=== PATIENT | female | born 1955 | race Caucasian/White ===

== ENCOUNTER 2016-09-21 08:13 | Outpatient (CLI) | payer OTHER ==
[2016-09-21 13:13] LABS: CALCIUM 9.1 mg/dL (8.5-10.3); CREATININE 0.8 mg/dL (0.4-1.0); POTASSIUM 4.6 mmol/L (3.5-5.0)
[2016-09-21 13:15] LABS: HEMOGLOBIN A1C 0.78 g/dL
== END 2016-09-21 08:14 | disposition home or self-care (01) ==
LOC: LAB.WCP 08:13
PROVIDERS: ATTEND Family Medicine
DX: E11.65 Type 2 diabetes mellitus with hyperglycemia (principal)
CPT/HCPCS: 36415; 80048; 82043; 83036

== ENCOUNTER 2016-11-17 07:10 | Outpatient (CLI) | payer OTHER ==
--- NOTE | 2016-11-19 07:42 | Mammography Report ---
DIGITAL BILATERAL SCREENING MAMMOGRAM: 11/17/2016 CLINICAL HISTORY: A 60-year-old female in for routine screening mammogram. Patient has no family hi story of breast cancer. Patient has had no prior breast surgeries. COMPARISON: 07/30/2008, 08/07/2009, 06/20/2014, 12/17/2014 TECHNIQUE: Craniocaudad and oblique lateral views of each breast were obtained with [facility] Fie ld digital mammography. The breasts are large and had to be imaged in segments which does limit the sensitivity of mammography. It was very difficult to obtain adequate compression on the oblique late ral views on this patient because of the protruding abdomen. Multiple oblique lateral views were obt ained of each breast in additional to routine craniocaudad views and FLAIR exaggerated views of each breast were done. FINDINGS: Breasts are almost entirely composed of fat. No significant clusters of calcification are seen. No significant masses are noted. No change is seen. IMPRESSION: BREASTS APPEAR RADIOGRAPHICALLY BENIGN. BIRADS CATEGORY 1 - NEGATIVE. RECOMMENDATIONS: Annual bilateral screening mammography. STANDARD QUALIFYING STATEMENTS 1. This examination was reviewed with the aid of Computer-Aided Detection (CAD). 2. A negative or benign imaging report should not delay biopsy if clinically suspicious findings are present. Consider surgical consultation if warranted. More than 5% of cancers are not identified by i ing. 3. Dense breasts may obscure an underlying neoplasm. JOB #: [id number] EXT JOB #:[id number]
== END 2016-11-17 07:11 | disposition home or self-care (01) ==
LOC: DI 07:10
PROVIDERS: ATTEND Family Medicine
DX: Z12.31 Encounter for screening mammogram for malignant neoplasm of breast (principal)
CPT/HCPCS: 77067

== ENCOUNTER 2017-05-23 08:00 | Outpatient (CLI) | payer OTHER ==
[2017-05-23 13:04] LABS: BASOPHILS # (AUTO) 0.1 10^3/uL (0.0-0.1); BASOPHILS % (AUTO) 0.4 %; EOSINOPHILS # (AUTO) 0.1 10^3/uL (0.0-0.7); HGB - HEMOGLOBIN 12.4 g/dL (12.0-16.0); LYMPHOCYTES # (AUTO) 2.1 10^3/uL (1.5-3.5); LYMPHOCYTES % (AUTO) 16.4 %; MEAN CORPUSCULAR HEMOGLOBIN 27.2 pg (27.0-31.0); MEAN CORPUSCULAR HGB CONC 32.6 g/dL (32.0-36.0); MEAN CORPUSCULAR VOLUME 83.4 fL (81.0-99.0); MEAN PLATELET VOLUME 8.6 fL (7.9-10.8); MONOCYTES # (AUTO) 0.7 10^3/uL (0.0-1.0); NEUTROPHILS # (AUTO) 9.6 10^3/uL (1.5-6.6); NEUTROPHILS % (AUTO) 76.2 %; PLT - PLATELET COUNT 341 10^3/uL (130-450); RED BLOOD COUNT 4.57 10^6/uL (4.20-5.40); RED CELL DISTRIBUTION WIDTH 15.2 % (12.0-15.0); WHITE BLOOD COUNT 12.6 x10^3/uL (4.8-10.8)
[2017-05-23 13:19] LABS: ALBUMIN 3.7 g/dL (3.2-5.5); ALBUMIN/GLOBULIN RATIO 0.9 (1.0-2.2); ALKALINE PHOSPHATASE 46 IU/L (42-121); ALT ALANINE AMINOTRANSFERASE 20 IU/L (10-60); AST ASPARTATE AMINOTRANSFERASE 20 IU/L (10-42); BILIRUBIN,TOTAL 0.5 mg/dL (0.2-1.0); BUN - BLOOD UREA NITROGEN 20 mg/dL (6-20); CALCIUM 8.6 mg/dL (8.5-10.3); CARBON DIOXIDE - CO2 24 mmol/L (21-32); CHLORIDE 103 mmol/L (101-111); CHOL/HDL RATIO 5.8 (<4.4); CHOLESTEROL 202 mg/dL; CREATININE 0.8 mg/dL (0.4-1.0); GFR - MDRD 73 (>89); GLUCOSE 201 mg/dL (70-100); HDL CHOLESTEROL 35 mg/dL; LDL CHOLESTEROL,CALCULATED 106 mg/dL; SODIUM 134 mmol/L (135-145); TOTAL PROTEIN 7.7 g/dL (6.7-8.2); VLDL CHOLESTEROL 61 mg/dL
[2017-05-23 13:26] LABS: HB2 TOTAL 13.6 g/dL; HEMOGLOBIN A1C 0.9 g/dL
[2017-05-23 13:27] LABS: HEMOGLOBIN A1C % 8.2 % (4.6-6.2)
== END 2017-05-23 08:01 | disposition home or self-care (01) ==
LOC: LAB.WCP 08:00
PROVIDERS: ATTEND Family Medicine
DX: E11.9 Type 2 diabetes mellitus without complications (principal)
CPT/HCPCS: 36415; 80053; 80061; 83036; 83721; 84443; 85025

== ENCOUNTER 2017-06-03 08:00 | Outpatient (CLI) | payer OTHER ==
[2017-06-05 12:51] LABS: COMPLEMENT COMPONENT C4C 27 mg/dL (16-47)
== END 2017-06-03 08:01 | disposition home or self-care (01) ==
LOC: LAB.WCP 08:00
PROVIDERS: ATTEND Allergy & Immunology
DX: T78.3XXA Angioneurotic edema, initial encounter (principal)
CPT/HCPCS: 36415; 81599; 83520; 86160; 86161

== ENCOUNTER 2018-01-27 18:32 | Outpatient (CLI) | payer OTHER ==
--- NOTE | 2018-01-29 15:44 | Ultrasound Report ---
Reason: NON-PRS CHRONIC ULCER OTH PRT L LOW LEG W FAT LAYE Procedure Date: 01/27/2018 Accession Number: [id number] / [id number] Procedure: US - Duplex Lwr Ext Arterial RT CPT Code: FULL RESULT: EXAM: RIGHT LOWER EXTREMITY ARTERIAL DOPPLER ULTRASOUND. EXAM DATE: 01/27/2018 07:29 PM. CLINICAL HISTORY: Chronic left right leg ulcer. History of type 2 diabetes. COMPARISON: None. TECHNIQUE: Real-time sonographic vascular imaging was performed by the bingo usher, utilizing color-flow, Doppler flow, and spectral analysis. Multiple union representative static images were saved for review. FINDINGS: Right Lower Extremity: MACHINE BOSS: PSV 117.7 cm/sec. Triphasic waveform. PSFA: PSV 156.9 cm/sec. Triphasic waveform. MSFA: PSV 165.4 cm/sec. Triphasic waveform. DSFA: PSV 168.8 cm/sec. Triphasic waveform. PFA: Not seen. POP: PSV 107.4 cm/sec. Monophasic waveform. KALEY: PSV 89.4 cm/sec. Monophasic waveform. MARINE GEAR KEEPER: PSV 209.7 cm/sec. Monophasic waveform. ABEL: Not seen. DPA: PSV 63.3 cm/sec. Monophasic waveform. Other: Per bingo usher notes, limited exam due to patient body habitus. IMPRESSION: 1. Elevated velocity and monophasic waveform in the posterior tibial artery indicating 50-99% stenosis. 2. At least two-vessel flow to the ankle, through the anterior tibial and posterior tibial arteries. The peroneal artery is not seen. RADIA
== END 2018-01-27 18:33 | disposition home or self-care (01) ==
LOC: DI 18:32
PROVIDERS: ATTEND Internal Medicine
DX: E11.51 Type 2 diabetes mellitus with diabetic peripheral angiopathy without gangrene (principal)

== ENCOUNTER 2018-02-24 14:53 | Outpatient (CLI) | payer OTHER | END 2018-02-24 14:54 | disposition home or self-care (01) | LOC: LAB.WCP 14:53 | PROVIDERS: ATTEND Internal Medicine | DX: I87.311 Chronic venous hypertension (idiopathic) with ulcer of right lower extremity (principal); L97.822 Non-pressure chronic ulcer of other part of left lower leg with fat layer exposed; L08.9 Local infection of the skin and subcutaneous tissue, unspecified | CPT/HCPCS: 36415; 84134 ==

== ENCOUNTER 2018-05-10 08:10 | Outpatient (CLI) | payer BC, OTHER ==
[2018-05-10 12:41] LABS: ALBUMIN 3.6 g/dL (3.2-5.5); BILIRUBIN,TOTAL 0.3 mg/dL (0.2-1.0); CALCIUM 8.8 mg/dL (8.5-10.3); CREATININE 0.7 mg/dL (0.4-1.0); TOTAL PROTEIN 7.3 g/dL (6.7-8.2)
[2018-05-10 12:46] LABS: HB2 TOTAL 12.8 g/dL; HEMOGLOBIN A1C 0.8 g/dL; HEMOGLOBIN A1C % 7.9 % (4.6-6.2)
== END 2018-05-10 23:59 | disposition home or self-care (01) ==
LOC: LAB.WCP 08:10
PROVIDERS: ATTEND Family Medicine
DX: E11.9 Type 2 diabetes mellitus without complications (principal)
CPT/HCPCS: 36415; 80053; 83036

== ENCOUNTER 2019-11-23 09:15 | Outpatient (CLI) | payer BC ==
[2019-11-23 11:34] LABS: BASOPHILS # (AUTO) 0.1 10^3/uL (0.0-0.1); BASOPHILS % (AUTO) 0.5 %; EOSINOPHILS # (AUTO) 0.2 10^3/uL (0.0-0.7); EOSINOPHILS % (AUTO) 1.7 %; HGB - HEMOGLOBIN 12.1 g/dL (12.0-16.0); LYMPHOCYTES % (AUTO) 19.4 %; MEAN CORPUSCULAR HEMOGLOBIN 27.4 pg (27.0-31.0); MEAN CORPUSCULAR HGB CONC 32.2 g/dL (32.0-36.0); MEAN CORPUSCULAR VOLUME 85.1 fL (81.0-99.0); MEAN PLATELET VOLUME 9.9 fL (7.9-10.8); MONOCYTES # (AUTO) 0.6 10^3/uL (0.0-1.0); MONOCYTES % (AUTO) 5.7 %; NEUTROPHILS # (AUTO) 7.4 10^3/uL (1.5-6.6); NEUTROPHILS % (AUTO) 72.3 %; PLT - PLATELET COUNT 402 10^3/uL (130-450); RED BLOOD COUNT 4.42 10^6/uL (4.20-5.40); RED CELL DISTRIBUTION WIDTH 15.9 % (12.0-15.0); WHITE BLOOD COUNT 10.2 x10^3/uL (4.8-10.8)
[2019-11-23 12:07] LABS: ALBUMIN 3.7 g/dL (3.2-5.5); ALBUMIN/GLOBULIN RATIO 0.9 (1.0-2.2); ALKALINE PHOSPHATASE 46 IU/L (42-121); ALT ALANINE AMINOTRANSFERASE 23 IU/L (10-60); AST ASPARTATE AMINOTRANSFERASE 21 IU/L (10-42); BILIRUBIN,TOTAL 0.6 mg/dL (0.2-1.0); BUN - BLOOD UREA NITROGEN 19 mg/dL (6-20); CARBON DIOXIDE - CO2 28 mmol/L (21-32); CHLORIDE 99 mmol/L (101-111); CHOL/HDL RATIO 3.3 (<4.4); CHOLESTEROL 180 mg/dL; GLUCOSE 145 mg/dL (70-100); HDL CHOLESTEROL 54 mg/dL; LDL CHOLESTEROL,CALCULATED 58 mg/dL; LDL/HDL RATIO 1.1 (<4.4); SODIUM 138 mmol/L (135-145); VLDL CHOLESTEROL 68 mg/dL
[2019-11-23 12:26] LABS: HB2 TOTAL 12.4 g/dL; HEMOGLOBIN A1C 0.69 g/dL; HEMOGLOBIN A1C % 7.2 % (4.6-6.2)
== END 2019-11-23 23:59 | disposition home or self-care (01) ==
LOC: LAB.WCP 09:15
PROVIDERS: ATTEND Family Medicine
DX: R10.31 Right lower quadrant pain (principal); E11.9 Type 2 diabetes mellitus without complications
CPT/HCPCS: 36415; 80053; 80061; 81599; 83036; 83721; 84443; 85025

== ENCOUNTER 2020-02-29 09:12 | Outpatient (CLI) | payer BC ==
[2020-02-29 11:52] LABS: CALCIUM 8.7 mg/dL (8.5-10.3)
== END 2020-02-29 23:59 | disposition home or self-care (01) ==
LOC: LAB.WCP 09:12
PROVIDERS: ATTEND Family Medicine
DX: E11.9 Type 2 diabetes mellitus without complications (principal)
CPT/HCPCS: 36415; 80048; 82043; 82570; 83036

== ENCOUNTER 2020-06-02 08:00 | Outpatient (CLI) | payer BC ==
[2020-06-02 12:33] LABS: % IRON SATURATION 6 % (20-50); CHOL/HDL RATIO 4.1 (<4.4); CHOLESTEROL 156 mg/dL; HDL CHOLESTEROL 38 mg/dL; IRON 24 ug/dL (28-170); LDL CHOLESTEROL,CALCULATED 62 mg/dL; LDL/HDL RATIO 1.6 (<4.4); TOTAL IRON BINDING CAPACITY 391 ug/dL (250-450); TRANSFERRIN 279 mg/dL (192-382); VLDL CHOLESTEROL 56 mg/dL
[2020-06-02 12:36] LABS: INR 2.2 (0.8-1.2); PT - PROTHROMBIN TIME 23.4 secs (9.9-12.6)
[2020-06-02 12:52] LABS: FERRITIN 21.2 ng/mL (11.0-306.8)
== END 2020-06-02 23:59 | disposition home or self-care (01) ==
LOC: LAB.WCP 08:00
PROVIDERS: ATTEND Nurse Practitioner Family
DX: E88.81 Metabolic syndrome and other insulin resistance (principal); E11.9 Type 2 diabetes mellitus without complications; Z79.4 Long term (current) use of insulin
CPT/HCPCS: 36415; 80061; 82306; 82607; 82728; 82747; 83013; 83540; 83721; 83970; 84443; 84466; 85610; 85730

== ENCOUNTER 2020-07-17 16:13 | Outpatient (CLI) | payer BC ==
[2020-07-17 16:56] VITALS: BP 126/71
--- NOTE | 2020-07-17 16:56 | SLEEP CARE CONSULTATION ---
Information from patient questionnaire entered by Kevyn Viera. I have reviewed and concur with the information entered by Kevyn Viera. This document represents the service I personally performed and the decisions made by me, Kristin Vaughan ARNP. History of Present Illness Service Date and Time: 07/17/2020 1613 Reason for Visit: New patient, Re-establish care, Other (Having bariatric surgery) Chief Complaint: reports: Snoring Usual bedtime: 11 PM Time it takes to fall asleep: 30 min - 1 hr Snores at night: Yes (she may, she sleeps alone) Observed to quit breathing while asleep: No (she sleeps alone) Sleeps alone due to snoring: No Number of times waking at night: 1-2 Reasons for waking at night: reports: Bathroom Toss, Turn, or Twitch while sleeping: Yes (some) Recalls having dreams: Yes Usually gets out of bed at: 6-6:15 Feels refreshed in the morning: Yes (Most of the time) Morning headache: No Sleepy or fatigued during the day: Yes (sometimes) Ever fallen asleep while driving: No Takes day naps: Yes (On weekends) Dreams during day naps: Yes Prior sleep studies: No Additional HPI information: I had the pleasure of seeing FEDE QUIROZ today regarding the possibility of her having a sleep disorder. Her current complaint is occasional snoring. She is working on getting bariatric surgery and needs to have a sleep study prior to the surgery. She states she does not have pauses in breathing when sleeping but sleeps alone. She states the majority of the time she wakes up feeling rested. She has good energy during the day and denies daytime sleepiness. She only naps on the weekends. 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 She has a history of diabetes, asthma and Factor V. She states her father snored but no family history of sleep apnea. 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 Patient is and lives in [place]. Have you smoked in the past 12 months: No Alcohol use: Yes Alcohol amount and frequency: occasionally Caffeine use: Yes Caffeine amount and frequency: 1 cup per day - iced tea Family History Family history of sleep disordered breathing: No Family Hx Sleep Apnea: Father: Snoring Allergies and Home Medications Drug allergies reviewed: Yes (lisinopril, losartin) Home medication list reviewed: Yes Allergy and home medication list: Lovastatin Furosemide Metformin HCTZ Advair Hydralazine Montelukast Warfarin Gabapentin Allertec Novolin R Novolin N Extra Strength Tylenol B12 D3 Iron Review of Systems Cardiovascular: reports: have to sleep sitting up (because of weight). denies: high blood pressure Respiratory: reports: shortness of breath, wheeze, chronic cough Gastrointestinal: reports: other (IBS). denies: heartburn Neurological: denies: headaches Psychiatric: denies: anxiety, depression Ear/Nose/Throat: reports: dry mouth/throat, wisdom teeth removed. denies: tonsillectomy Musculoskeletal: reports: joint pain (stiffness) Immunologic: reports: sneezing (runny nose), itching, allergies to food or environment Physical Exam Blood Pressure: 126/71 Cuff size: wrist Heart Rate: 93 O2 Saturation: 97 Height: 5 ft 4 in Weight: 340 lb Body Mass Index: 58.3 BMI Classification: Morbidly Obese Nostrils: patent to airflow Mouth and throat: narrow oropharynx Soft palate: long Hard palate: normal Uvula: normal Uvula visualization: 50% Mallampati Class II Tongue: enlarged in size with teeth kumar on lateral edges Tonsils: 2+ Heart: regular rate and rhythm Lungs: clear bilaterally Impression and Plan 1. Suspected Obstructive Sleep Apnea-Hypopnea Syndrome, as suggested by a history of occasional snoring, diabetes and patient being evaluated for bariatric surgery. Narrow oropharynx and obesity are common predisposing factors for obstructive sleep apnea-hypopnea syndrome. I recommend proceeding to polysomnography to confirm the diagnosis and to assess severity. If the patient has significant sleep disordered breathing, a manual CPAP titration study will also be performed to find the optimal treatment pressure. I informed the patient of what the sleep studies involve and after some discussion, obtained agreement to proceed. The pathophysiology of obstructive sleep apnea-hypopnea syndrome was discussed with the patient and health risks of cardiovascular and cerebrovascular disease if not treated. Risks of drowsy driving discussed in detail and patient advised to avoid long distance driving and to crop puller at the first sign of drowsiness. Patient agreed to plan. * Schedule polysomnography +- manual CPAP titration study and return in 1-2 weeks after the study to discuss result and initiate therapy. * Avoid long distance driving or driving when feeling sleepy. * Avoid alcohol, sedative and muscle relaxant around bedtime. * Continue to try to lose weight. * Review instructions provided by trained office staff on how to prepare for the sleep study. * Return for follow-up after sleep study completed. Counseling Topics: Weight loss health impact Visit Type: In Office Time Spent with Patient (minutes): 31 Provider Statement: I spent 100% of the Face to Face Visit with the patient with greater than 50% spent counseling the patient and coordination of care.
== END 2020-07-17 16:14 | disposition home or self-care (01) ==
LOC: SC 16:13
PROVIDERS: ATTEND Nurse Practitioner Family
DX: R06.83 Snoring (principal); E11.9 Type 2 diabetes mellitus without complications; E66.01 Morbid (severe) obesity due to excess calories; Z68.43 Body mass index [BMI] 50.0-59.9, adult; Z79.84 Long term (current) use of oral hypoglycemic drugs
CPT/HCPCS: 99203; 99212

== ENCOUNTER 2020-07-28 08:00 | Outpatient (CLI) | payer BC ==
[2020-07-28 12:24] LABS: BASOPHILS % (AUTO) 0.4 %; EOSINOPHILS # (AUTO) 0.2 10^3/uL (0.0-0.7); EOSINOPHILS % (AUTO) 1.8 %; HCT - HEMATOCRIT 40.1 % (37.0-47.0); HGB - HEMOGLOBIN 12.3 g/dL (12.0-16.0); LYMPHOCYTES # (AUTO) 2.5 10^3/uL (1.5-3.5); LYMPHOCYTES % (AUTO) 22.8 %; MEAN CORPUSCULAR HEMOGLOBIN 26.1 pg (27.0-31.0); MEAN CORPUSCULAR HGB CONC 30.7 g/dL (32.0-36.0); MEAN PLATELET VOLUME 10.1 fL (7.9-10.8); MONOCYTES # (AUTO) 0.6 10^3/uL (0.0-1.0); MONOCYTES % (AUTO) 5.3 %; NEUTROPHILS # (AUTO) 7.5 10^3/uL (1.5-6.6); NEUTROPHILS % (AUTO) 69.3 %; PLT - PLATELET COUNT 428 10^3/uL (130-450); RED BLOOD COUNT 4.72 10^6/uL (4.20-5.40); RED CELL DISTRIBUTION WIDTH 16.1 % (12.0-15.0); WHITE BLOOD COUNT 10.8 x10^3/uL (4.8-10.8)
[2020-07-28 12:34] LABS: ALBUMIN 4.2 g/dL (3.2-5.5); BILIRUBIN,TOTAL 0.6 mg/dL (0.2-1.0); CALCIUM 9.5 mg/dL (8.5-10.3); POTASSIUM 3.9 mmol/L (3.5-5.0); TOTAL PROTEIN 8.4 g/dL (6.7-8.2)
[2020-07-28 12:55] LABS: ESTIMATED AVERAGE GLUCOSE 157 mg/dL (70-100); HEMOGLOBIN A1c% 7.1 % (4.27-6.07)
== END 2020-07-28 23:59 | disposition home or self-care (01) ==
LOC: LAB.WCP 08:00
PROVIDERS: ATTEND Family Medicine
DX: E11.9 Type 2 diabetes mellitus without complications (principal)
CPT/HCPCS: 36415; 80053; 83013; 83036; 85025

== ENCOUNTER 2020-09-19 14:50 | Outpatient (CLI) | payer BC | END 2020-09-19 14:51 | disposition home or self-care (01) | LOC: SC 14:50 | PROVIDERS: ATTEND Nurse Practitioner Family | DX: R06.83 Snoring (principal); E11.9 Type 2 diabetes mellitus without complications; E66.01 Morbid (severe) obesity due to excess calories; Z68.43 Body mass index [BMI] 50.0-59.9, adult | CPT/HCPCS: 95806 ==

== ENCOUNTER 2020-10-03 16:07 | Outpatient (CLI) | payer BC ==
--- NOTE | 2020-10-03 16:36 | SLEEP CARE CONSULTATION ---
Information from patient questionnaire entered by Kevyn Viera. I have reviewed and concur with the information entered by Kevyn Viera. This document represents the service I personally performed and the decisions made by , Kristin Vaughan ARNP. History of Present Illness Service Date and Time: 10/03/2020 1607 Initial Haiku Sleepiness Scale score: 10 (in 2020) Current Haiku Sleepiness Scale score: 6 Additional HPI information: FEDE QUIROZ returns for follow up and results of the recently performed home sleep study. The patient was informed of the following findings: no significant sleep disordered breathing with an average AHI of 2.9 and rupali oxygen saturation of 87%. I explained the pathophysiology behind obstructive sleep apnea. Patient does not have sleep apnea and was advised how weight gain could increase the risk of developing sleep apnea in the future. I strongly encouraged the patient to lose weight. Patient has light snoring. Snoring can be reduced by weight loss. Weight loss is best achieved with diet consult. Patient instructed to contact PCP for referral. Snoring can also be treated with an oral appliance from a dentist. Advised to check insurance coverage. In addition, an ENT evaluation can be do to see if other treatment is indicated. Patient counseled not drink alcohol less than 4 hours before bedtime as it can increase snoring and apnea. Patient was cautioned about risks of drowsy driving until sleepiness symptoms resolve. Sleep Study - Results Type of Sleep Study: Home sleep study Prior sleep studies: No Polysomnography/Home Sleep Study results: Physician Impression: The quality of the study is good. The length of the study is adequate (> 240 minutes). Please also see the tabulated and graphic data. 1. No significant sleep-disordered breathing, with an AHI of 2.9/hr and rupali SaO2 of 87%. During the study, the patient had 9 apneas (9 obstructive, 0 central, 0 mixed) and 13 hypopneas. The longest episode lasted 69.0 seconds. The patient slept only in supine position (supine AHI was 2.9 and nonsupine, 0.00). 2. Hypoxemia (ICD-10 R09.02), minimal, with the lowest oxygen saturation of 87 % and 0.9 minutes with SaO2 under 90%. Baseline oxygen saturation was normal (Average oxygen saturation was 94%). Allergies and Home Medications Home medication list reviewed: Yes (no changes) Review of Systems Review of systems same as previous: Yes (no changes) Physical Exam Heart Rate: 82 O2 Saturation: 97 Height: 5 ft 4 in Weight: 333 lb Weight change since last visit: 7 lb loss Body Mass Index: 57.1 BMI Classification: Morbidly Obese Impression and Plan Snoring but no significant sleep disordered breathing. Patient advised that often weight loss will reduce snoring as well as apnea risk. She is already set up to have bariatric surgery. An oral appliance can also be used for snoring. This would require a dental consultation. Patient cautioned not to use other online appliances as can cause bite issues. A list of accredited dentists in [facility] who make oral appliances are available in the office. Patient is advised to check if insurance will cover. An ENT consult can also be helpful to determine if any other treatment is an option. * Attempt to lose weight * Avoid alcohol consumption near bedtime * The patient is cautioned about driving until sleepiness is completely resolved. * Return as needed for follow up. Counseling Topics: Weight loss health impact Visit Type: In Office Time Spent with Patient (minutes): 11 Provider Statement: I spent 100% of the Face to Face Visit with the patient with greater than 50% spent counseling the patient and coordination of care.
== END 2020-10-03 16:08 | disposition home or self-care (01) ==
LOC: SC 16:07
PROVIDERS: ATTEND Nurse Practitioner Family
DX: R06.83 Snoring (principal); E66.01 Morbid (severe) obesity due to excess calories; Z68.43 Body mass index [BMI] 50.0-59.9, adult; E11.9 Type 2 diabetes mellitus without complications; Z79.84 Long term (current) use of oral hypoglycemic drugs
CPT/HCPCS: 99212

== ENCOUNTER 2020-12-19 13:45 | Outpatient (CLI) | payer BC ==
[2020-12-19 18:25] LABS: CALCIUM 9.2 mg/dL (8.5-10.3); CREATININE 0.9 mg/dL (0.4-1.0); POTASSIUM 3.9 mmol/L (3.5-5.0)
[2020-12-19 21:43] LABS: ESTIMATED AVERAGE GLUCOSE 163 mg/dL (70-100); HEMOGLOBIN A1c% 7.3 % (4.27-6.07)
== END 2020-12-19 23:59 | disposition home or self-care (01) ==
LOC: LAB.WCP 13:45
PROVIDERS: ATTEND Family Medicine
DX: E11.9 Type 2 diabetes mellitus without complications (principal)
CPT/HCPCS: 36415; 80048; 83036

== ENCOUNTER 2020-12-25 08:00 | Outpatient (CLI) | payer BC ==
[2020-12-25 11:44] LABS: BASOPHILS # (AUTO) 0.1 10^3/uL (0.0-0.1); BASOPHILS % (AUTO) 0.6 %; EOSINOPHILS # (AUTO) 0.3 10^3/uL (0.0-0.7); EOSINOPHILS % (AUTO) 3.5 %; HCT - HEMATOCRIT 38.6 % (37.0-47.0); LYMPHOCYTES # (AUTO) 2.4 10^3/uL (1.5-3.5); MEAN CORPUSCULAR HEMOGLOBIN 25.8 pg (27.0-31.0); MEAN CORPUSCULAR HGB CONC 31.1 g/dL (32.0-36.0); MONOCYTES # (AUTO) 0.5 10^3/uL (0.0-1.0); MONOCYTES % (AUTO) 5.8 %; NEUTROPHILS # (AUTO) 5.5 10^3/uL (1.5-6.6); NEUTROPHILS % (AUTO) 62.9 %; PLT - PLATELET COUNT 378 10^3/uL (130-450); RED BLOOD COUNT 4.65 10^6/uL (4.20-5.40); RED CELL DISTRIBUTION WIDTH 16.4 % (12.0-15.0); WHITE BLOOD COUNT 8.8 x10^3/uL (4.8-10.8)
== END 2020-12-25 23:59 | disposition home or self-care (01) ==
LOC: LAB.WCP 08:00
PROVIDERS: ATTEND Family Medicine
DX: D64.9 Anemia, unspecified (principal)
CPT/HCPCS: 36415; 85025

== ENCOUNTER 2021-03-03 08:00 | Outpatient (CLI) | payer BC ==
[2021-03-03 12:01] LABS: BASOPHILS # (AUTO) 0.1 10^3/uL (0.0-0.1); BASOPHILS % (AUTO) 0.4 %; EOSINOPHILS # (AUTO) 0.2 10^3/uL (0.0-0.7); HCT - HEMATOCRIT 39.5 % (37.0-47.0); HGB - HEMOGLOBIN 11.8 g/dL (12.0-16.0); LYMPHOCYTES # (AUTO) 2.4 10^3/uL (1.5-3.5); LYMPHOCYTES % (AUTO) 21.8 %; MEAN CORPUSCULAR HEMOGLOBIN 25.9 pg (27.0-31.0); MEAN CORPUSCULAR HGB CONC 29.9 g/dL (32.0-36.0); MEAN CORPUSCULAR VOLUME 86.8 fL (81.0-99.0); MEAN PLATELET VOLUME 10.4 fL (7.9-10.8); MONOCYTES # (AUTO) 0.6 10^3/uL (0.0-1.0); MONOCYTES % (AUTO) 5.6 %; NEUTROPHILS # (AUTO) 7.8 10^3/uL (1.5-6.6); NEUTROPHILS % (AUTO) 69.9 %; PLT - PLATELET COUNT 407 10^3/uL (130-450); RED BLOOD COUNT 4.55 10^6/uL (4.20-5.40); RED CELL DISTRIBUTION WIDTH 17.7 % (12.0-15.0); WHITE BLOOD COUNT 11.1 x10^3/uL (4.8-10.8)
[2021-03-03 12:26] LABS: THYROID STIMULATING HORMONE 2.13 uIU/mL (0.34-5.60)
[2021-03-03 12:32] LABS: ALBUMIN 3.8 g/dL (3.2-5.5); ALBUMIN/GLOBULIN RATIO 1.1 (1.0-2.2); ALKALINE PHOSPHATASE 44 IU/L (42-121); ALT ALANINE AMINOTRANSFERASE 17 IU/L (10-60); AST ASPARTATE AMINOTRANSFERASE 19 IU/L (10-42); BILIRUBIN,TOTAL 0.7 mg/dL (0.2-1.0); BUN - BLOOD UREA NITROGEN 13 mg/dL (6-20); CALCIUM 9.2 mg/dL (8.5-10.3); CARBON DIOXIDE - CO2 28 mmol/L (21-32); CHLORIDE 103 mmol/L (101-111); CHOL/HDL RATIO 3.6 (<4.4); CHOLESTEROL 133 mg/dL; CREATININE 0.8 mg/dL (0.4-1.0); GFR - MDRD 72 (>89); GLUCOSE 147 mg/dL (70-100); HDL CHOLESTEROL 37 mg/dL; LDL CHOLESTEROL,CALCULATED 66 mg/dL; LDL/HDL RATIO 1.8 (<4.4); POTASSIUM 4.3 mmol/L (3.5-5.0); SODIUM 141 mmol/L (135-145); TOTAL PROTEIN 7.4 g/dL (6.7-8.2); TRIGLYCERIDES 149 mg/dL; VLDL CHOLESTEROL 30 mg/dL
[2021-03-03 13:38] LABS: ESTIMATED AVERAGE GLUCOSE 143 mg/dL (70-100); HEMOGLOBIN A1c% 6.6 % (4.27-6.07)
== END 2021-03-03 23:59 | disposition home or self-care (01) ==
LOC: LAB.WCP 08:00
PROVIDERS: ATTEND Family Medicine
DX: E11.9 Type 2 diabetes mellitus without complications (principal)
CPT/HCPCS: 36415; 80053; 80061; 82607; 83036; 83721; 84443; 85025

== ENCOUNTER 2022-02-04 12:11 | Outpatient (CLI) | payer BC ==
[2022-02-04 17:38] LABS: BASOPHILS # (AUTO) 0.1 10^3/uL (0.0-0.1); BASOPHILS % (AUTO) 0.6 %; EOSINOPHILS # (AUTO) 0.3 10^3/uL (0.0-0.7); EOSINOPHILS % (AUTO) 3.7 %; HCT - HEMATOCRIT 40.3 % (37.0-47.0); HGB - HEMOGLOBIN 12.9 g/dL (12.0-16.0); LYMPHOCYTES % (AUTO) 34.3 %; MEAN CORPUSCULAR VOLUME 87.6 fL (81.0-99.0); MEAN PLATELET VOLUME 10.6 fL (7.9-10.8); MONOCYTES # (AUTO) 0.5 10^3/uL (0.0-1.0); MONOCYTES % (AUTO) 5.5 %; NEUTROPHILS # (AUTO) 4.8 10^3/uL (1.5-6.6); NEUTROPHILS % (AUTO) 55.6 %; PLT - PLATELET COUNT 380 10^3/uL (130-450); RED CELL DISTRIBUTION WIDTH 13.4 % (12.0-15.0); WHITE BLOOD COUNT 8.7 x10^3/uL (4.8-10.8)
[2022-02-04 18:03] LABS: ALBUMIN 3.6 g/dL (3.2-5.5); ALBUMIN/GLOBULIN RATIO 0.9 (1.0-2.2); ALKALINE PHOSPHATASE 54 IU/L (42-121); ALT ALANINE AMINOTRANSFERASE 22 IU/L (10-60); AST ASPARTATE AMINOTRANSFERASE 20 IU/L (10-42); BILIRUBIN,TOTAL 0.6 mg/dL (0.2-1.0); BUN - BLOOD UREA NITROGEN 11 mg/dL (6-20); CALCIUM 9.5 mg/dL (8.5-10.3); CARBON DIOXIDE - CO2 29 mmol/L (21-32); CHLORIDE 99 mmol/L (101-111); CHOL/HDL RATIO 5.1 (<4.4); CHOLESTEROL 197 mg/dL; CREATININE 0.7 mg/dL (0.4-1.0); GFR - MDRD 84 (>89); GLUCOSE 208 mg/dL (70-100); HDL CHOLESTEROL 39 mg/dL; POTASSIUM 4.2 mmol/L (3.5-5.0); SODIUM 136 mmol/L (135-145); TOTAL PROTEIN 7.4 g/dL (6.7-8.2); TRIGLYCERIDES 489 mg/dL
[2022-02-04 18:09] LABS: % IRON SATURATION 14 % (20-50); IRON 52 ug/dL (28-170); TOTAL IRON BINDING CAPACITY 374 ug/dL (250-450); TRANSFERRIN 267 mg/dL (192-382)
[2022-02-04 18:10] LABS: THYROID STIMULATING HORMONE 1.23 uIU/mL (0.34-5.60)
[2022-02-04 18:14] LABS: FERRITIN 16.7 ng/mL (11.0-306.8)
[2022-02-04 18:25] LABS: LDL CHOLESTEROL,DIRECT 84 mg/dL; LDLD/HDL RATIO 2.2 (<4.4)
[2022-02-04 20:19] LABS: ESTIMATED AVERAGE GLUCOSE 209 mg/dL (70-100); HEMOGLOBIN A1c% 8.9 % (4.27-6.07)
[2022-02-05 20:07] LABS: FOLATE HEMOLYSATE 364.7 ng/mL (Not Estab.); FOLATE RBC 950 ng/mL (>498); HEMATOCRIT 38.4 % (34.0-46.6)
== END 2022-02-04 12:12 | disposition home or self-care (01) ==
LOC: LAB.N 12:11
PROVIDERS: ATTEND Family Medicine
DX: E11.9 Type 2 diabetes mellitus without complications (principal); K91.2 Postsurgical malabsorption, not elsewhere classified; Z98.84 Bariatric surgery status
CPT/HCPCS: 36415; 80053; 80061; 82390; 82525; 82607; 82728; 82747; 83036; 83540; 83721; 84443; 84466; 85014; 85025

== ENCOUNTER 2022-08-09 08:52 | Outpatient (CLI) | payer BC ==
[2022-08-09 13:06] LABS: ESTIMATED AVERAGE GLUCOSE 180 mg/dL (70-100); HEMOGLOBIN A1c% 7.9 % (4.27-6.07)
== END 2022-08-09 08:53 | disposition home or self-care (01) ==
LOC: LAB.N 08:52
PROVIDERS: ATTEND Nurse Practitioner
DX: E11.9 Type 2 diabetes mellitus without complications (principal)
CPT/HCPCS: 36415; 83036

== ENCOUNTER 2023-04-18 09:15 | Outpatient (CLI) | payer BC ==
--- NOTE | 2023-04-18 13:55 | CT Report ---
PROCEDURE: ABDOMEN/PELVIS WO INDICATIONS: BARIATRIC SURGERY STATUS TECHNIQUE: After intravenous administration of oral contrast, A CT scan of the abdomen and pelvis was performed without the use of intravenous contrast. Images were recorded and evaluated at appropriate window se ttings. Reformats: coronal and sagittal. For radiation dose reduction, the following was used: automa mandeep exposure control, adjustment of mA and/or kV according to patient size. COMPARISON: None. FINDINGS: Image quality: Excellent. Lung bases and heart: Unremarkable. Liver: Normal size. Mild hepatic steatosis. No solid mass. Gallbladder and biliary tree: No radiopaque gallstones. No gallbladder wall thickening or pericholecy stic fluid. Multiple stones are seen in right kidney measuring 1-8 mm. Spleen: No splenomegaly. Pancreas: No pancreatic ductal dilation. Adrenals: No adrenal nodule. Kidneys and ureters: Bilateral nonobstructive renal calculi. There is a 9 mm stone in the inferior po le of left kidney measuring [address] density. Several 1-3 stones are seen in left k idney. No hydronephrosis. No renal cystic lesion which requires follow up. No solid mass. Bowel and peritoneum: No bowel distension. No pathologic free fluid. Postsurgical changes in stomach for gastric bypass. There is a large amount of stool in colon. Lymph nodes: No central or retroperitoneal adenopathy. Vessels: No infrarenal aortic aneurysm. PELVIS Reproductive organs: Unremarkable. Bladder: No wall thickness, accounting for underdistention. Pelvic lymph nodes: No pelvic adenopathy by size criteria. Bones: No aggressive osseous abnormality. Degenerative changes in lumbar spine. 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 Other: There is a small fat-containing ventral hernia in the lower anterior abdominal wall. No inguin al hernia. A few subcutaneous densities in the anterior abdominal wall are noted, compatible with fat necrosis or injection granulomas. IMPRESSION: 1. There are bilateral nonobstructive renal calculi. No hydronephrosis. 2. Gastric bypass. 3. Mild hepatic steatosis. 4. A small fat-containing ventral hernia in the right lower anterior abdominal wall. 5. A large amount of stool in colon. Reviewed by: Rylan Petres MD on 04/18/2023 1:54 PM PST Approved by: Rylan Peters MD on 04/18/2023 1:54 PM PST Station ID: [id number]
== END 2023-04-18 09:16 | disposition home or self-care (01) ==
LOC: DI 09:15
PROVIDERS: ATTEND Nurse Practitioner
DX: R26.81 Unsteadiness on feet (principal); L30.4 Erythema intertrigo; Z98.84 Bariatric surgery status; Z79.4 Long term (current) use of insulin; N20.0 Calculus of kidney; K76.0 Fatty (change of) liver, not elsewhere classified; K43.9 Ventral hernia without obstruction or gangrene

== ENCOUNTER 2023-05-31 07:16 | Outpatient (CLI) | payer BC ==
[2023-05-31 13:13] LABS: ALBUMIN 3.8 g/dL (3.2-5.5)
== END 2023-05-31 07:17 | disposition home or self-care (01) ==
LOC: LAB.N 07:16
PROVIDERS: ATTEND Specialist
DX: L98.7 Excessive and redundant skin and subcutaneous tissue (principal)
CPT/HCPCS: 36415; 82040; 84134

== ENCOUNTER 2023-11-08 08:00 | Outpatient (CLI) | payer BC ==
[2023-11-08 12:33] LABS: BASOPHILS % (AUTO) 0.2 %; HGB - HEMOGLOBIN 13.4 g/dL (12.0-16.0); LYMPHOCYTES # (AUTO) 0.9 10^3/uL (1.5-3.5); LYMPHOCYTES % (AUTO) 6.3 %; MEAN CORPUSCULAR HEMOGLOBIN 27.6 pg (27.0-31.0); MEAN CORPUSCULAR HGB CONC 31.9 g/dL (32.0-36.0); MEAN CORPUSCULAR VOLUME 86.6 fL (81.0-99.0); MEAN PLATELET VOLUME 10.6 fL (7.9-10.8); MONOCYTES # (AUTO) 0.4 10^3/uL (0.0-1.0); MONOCYTES % (AUTO) 2.9 %; NEUTROPHILS # (AUTO) 12.3 10^3/uL (1.5-6.6); NEUTROPHILS % (AUTO) 90.2 %; PLT - PLATELET COUNT 389 10^3/uL (130-450); RED BLOOD COUNT 4.85 10^6/uL (4.20-5.40); WHITE BLOOD COUNT 13.7 x10^3/uL (4.8-10.8)
[2023-11-08 13:13] LABS: ALBUMIN 4.1 g/dL (3.2-5.5); ALBUMIN/GLOBULIN RATIO 1.1 (1.0-2.2); BILIRUBIN,TOTAL 0.4 mg/dL (0.2-1.0); CALCIUM 9.5 mg/dL (8.5-10.3); CREATININE 1.4 mg/dL (0.6-1.3); POTASSIUM 4.4 mmol/L (3.5-4.5); TOTAL PROTEIN 7.8 g/dL (6.4-8.9)
== END 2023-11-08 23:59 | disposition home or self-care (01) ==
LOC: LAB.N 08:00
PROVIDERS: ATTEND Family Medicine
DX: N20.0 Calculus of kidney (principal); N13.4 Hydroureter; R10.32 Left lower quadrant pain
CPT/HCPCS: 36415; 80053; 83690; 85025; 87086

== ENCOUNTER 2023-11-08 11:39 | Outpatient (CLI) | payer BC ==
--- NOTE | 2023-11-08 12:50 | CT Report ---
PROCEDURE: Abdomen/Pelvis WO INDICATIONS: NEPHROLITHIASIS TECHNIQUE: A CT scan of the abdomen and pelvis was performed without the use of intravenous contrast. Images we re recorded and evaluated at appropriate window settings. Reformats: coronal and sagittal. For radiat ion dose reduction, the following was used: automated exposure control, adjustment of mA and/or kV ac cording to patient size. COMPARISON: CT abdomen pelvis 04/18/2023 FINDINGS: Image quality: Diagnostic. Lower chest: Unremarkable. Liver: No contour-deforming mass. Mild steatosis. Gallbladder: Unremarkable Biliary tree: No intrahepatic or extrahepatic dilation, accounting for age. Spleen: No splenomegaly. Pancreas: No pancreatic ductal dilation. Adrenals: No adrenal nodule. Kidneys and ureters: Bilateral renal atrophy. The right kidney demonstrates 3 calcifications the larg est measuring 1.2 cm in the superior pole, Hounsfield units 960. The left kidney demonstrates moderat e hydronephrosis. There are 4 punctate calcifications. The proximal ureteral calcification measuring 0.7 cm Hounsfield units 798 is present. Stomach, bowel and peritoneum: Postsurgical gastric bypass changes. No bowel obstruction. Scattered c olonic diverticula are present without inflammatory change. No pathologic free fluid. Lymph nodes: No central or retroperitoneal adenopathy. Vessels: No infrarenal aortic aneurysm. Reproductive organs: Unremarkable. Bladder: Bladder wall thickness is normal, accounting for underdistention. No calcified bladder stone s. Pelvic lymph nodes: No adenopathy by size criteria. Bones: No aggressive osseous abnormality. Other: No significant inguinal hernia. Small fat-containing ventral hernia. IMPRESSION: Moderate left hydronephrosis and proximal hydroureter secondary to 7 mm proximal ureteral calculus. N onobstructing renal calculi are present. Right kidney demonstrates nodularity calcifications largest measuring 1.2 cm. Reviewed by: Yi Delgado MD on 11/08/2023 12:49 PM PDT Approved by: Yi Delgado MD on 11/08/2023 12:49 PM PDT Station ID: [id number]
== END 2023-11-08 11:40 | disposition home or self-care (01) ==
LOC: DI 11:39
PROVIDERS: ATTEND Family Medicine
DX: N13.2 Hydronephrosis with renal and ureteral calculous obstruction (principal)
CPT/HCPCS: 36415; 80053; 83690; 85025; 87086

== ENCOUNTER 2023-12-12 07:06 | Outpatient (CLI) | payer BC ==
--- NOTE | 2023-12-12 15:20 | CT Report ---
PROCEDURE: Abdomen/Pelvis WO INDICATIONS: HYDROURETER, NEPHROLITHIASIS TECHNIQUE: A CT scan of the abdomen and pelvis was performed without the use of intravenous contrast. Images we re recorded and evaluated at appropriate window settings. Reformats: coronal and sagittal. For radiat ion dose reduction, the following was used: automated exposure control, adjustment of mA and/or kV ac cording to patient size. COMPARISON: CT abdomen/pelvis 11/08/2023, 04/18/2023. FINDINGS: Image quality: Diagnostic. Lower chest: Unremarkable. Liver: No contour-deforming mass. Gallbladder: No radiopaque stones or wall thickening. Biliary tree: No intrahepatic or extrahepatic dilation, accounting for age. Spleen: No splenomegaly. Pancreas: No pancreatic ductal dilation. Adrenals: No adrenal nodule. Kidneys and ureters: Left distal ureteral 7 mm calculus is seen (maximum Hounsfield units 1086), poss ibly the same calculus that was previously seen in the proximal ureter. There is moderate left hydrou reteronephrosis that is similar when compared with CT from 11/08/2023. Mild periureteral and perinephri c fat stranding. Additional punctate nonobstructing left renal calculi measuring up to 2 to 3 mm. Mul tiple nonobstructing right renal calculi are present, largest which measures 8 mm (1230 Hounsfield un its maximum). No right hydronephrosis. Stomach, bowel and peritoneum: Postsurgical changes from prior gastric bypass. Small bowel loops and stomach are otherwise unremarkable. Colon appears normal. Normal appendix is noted. No pathologic wen e fluid. Lymph nodes: No central or retroperitoneal adenopathy. Vessels: No infrarenal aortic aneurysm. Reproductive organs: Unremarkable. Bladder: Bladder wall thickness is normal, accounting for underdistention. No calcified bladder stone s. Pelvic lymph nodes: No adenopathy by size criteria. Bones: No aggressive osseous abnormality. Other: No significant inguinal hernia. Small fat-containing periumbilical hernia. IMPRESSION: 1.Left distal ureteral 7 mm calculus near the ureterovesicular junction with moderate left hydrourete ronephrosis and surrounding fat stranding. This may represent distal progression of the previously se en proximal ureteral calculus on CT from 11/08/2023. 2.Additional bilateral nonobstructing renal calculi. Reviewed by: Maximus Owusu MD on 12/12/2023 3:18 PM PDT Approved by: Maximus Owusu MD on 12/12/2023 3:18 PM PDT Station ID: [id number]
== END 2023-12-12 07:07 | disposition home or self-care (01) ==
LOC: DI 07:06
PROVIDERS: ATTEND Urology
DX: N13.30 Unspecified hydronephrosis (principal); N20.2 Calculus of kidney with calculus of ureter